=== PATIENT | male | born 1985 | race Caucasian/White ===

== ENCOUNTER 2018-11-03 19:37 | Emergency (ER) | payer OTHER ==
[~2018-11-03] VITALS: Ht 182.9 cm; Wt 79.4 kg
[2018-11-04] MEDS ORDERED: MORPHINE SULFATE 4 MG/ML SYR/VIAL IV ONE (00:15)
[2018-11-04] MEDS ORDERED: ONDANSETRON ODT 4 MG TAB PO ONE (00:15)
[2018-11-04] MEDS ORDERED: LORazepam 2MG/ML-1ML VIAL IM ONE (00:45)
[2018-11-04 01:23] VITALS: BP 124/82
[2018-11-04] MEDS ORDERED: HALOPERIDOL LACTATE 5 MG/ML INJ VIAL IM ONE (02:15)
== END 2018-11-04 02:42 | disposition home or self-care (01) ==
LOC: ER 19:37
DX: S98.912D Complete traumatic amputation of left foot, level unspecified, subsequent encounter (principal); S98.911D Complete traumatic amputation of right foot, level unspecified, subsequent encounter; F20.0 Paranoid schizophrenia; X58.XXXD Exposure to other specified factors, subsequent encounter
CPT/HCPCS: 96372; 96374; 99283; J2060; J2270; Q0162